=== PATIENT | female | born 1965 ===

== ENCOUNTER 2017-12-31 16:23 | Outpatient (CLI) | payer OTHER ==
[2018-01-17] MEDS ORDERED: WELLBUTRIN SR100 MG PO (10:13)
[2018-01-17] MEDS ORDERED: M.V.I. ADULT10 ML IV (10:13)
[2018-01-17] MEDS ORDERED: QSYMIA 11.25 M1 EACH PO (10:14)
== END 2017-12-31 16:37 | disposition home or self-care (01) ==
LOC: EKG 16:23
DX: Z90.12 Acquired absence of left breast and nipple (principal)

== ENCOUNTER → 2017-12-31 | Outpatient (CLI) | payer OTHER ==
[~2017-12-31] MED LIST: M.V.I. ADULT10 ML IV; QSYMIA 11.25 M1 EACH PO; WELLBUTRIN SR100 MG PO
== END | disposition home or self-care (01) ==
LOC: RAD 15:45
DX: Z90.12 Acquired absence of left breast and nipple (principal)

== ENCOUNTER 2018-04-29 08:50 | Day surgery (SDC) | payer OTHER ==
[~2018-04-29 08:50] MED LIST changes: +VIT C-ROSE HIP500 MG PO
== END 2018-04-29 12:30 | disposition home or self-care (01) ==
LOC: CIR.AMB 08:50
DX: C50.912 Malignant neoplasm of unspecified site of left female breast (principal); Z90.11 Acquired absence of right breast and nipple